=== PATIENT | female | born 1930 | race Two or more races ===

== ENCOUNTER 2018-01-11 12:36 | Inpatient (IN) | payer MEDICARE, OTHER ==
[~2018-01-11] VITALS: Ht 154.9 cm; Wt 76.7 kg
[2018-01-11] MEDS ORDERED: Magnesium 1GM/D5W 100ML PREMIX 200 ML IV ONE ×2 (12:40→12:47)
--- NOTE | 2018-01-11 12:42 | NUR ---
MATT FROM AN URGENT CARE DT RAPID HEART RATE-- PATIENT DENIES CHESTPAIN, REPORTED PALPITAITON, PATIENT IS AWAKE AND ALERT,NOT IN DISTRESS. SKIN IS WARM TO TOUCH AND NON DIAPHORETIC. PATIENT IS AFEBRILE. DENIES CHEST PAIN, NO SOB, VSS. CONNECTED PT TO TELE MONITOR. PENDING MD CROWELL
[2018-01-11] MEDS ORDERED: DILTIAZEM HCL 25 MG IV ONE (12:46)
[2018-01-11 13:00] LABS: BASOPHILS % (AUTO) 0.4 % (0.0-2.0); EOSINOPHILS % (AUTO) 0.5 % (0.0-6.0); HEMATOCRIT 44 % (33-45); HEMOGLOBIN 14.7 g/dL (11.5-14.8); LYMPHOCYTES # (AUTO) 1.5 /CMM (0.8-4.8); LYMPHOCYTES % (AUTO) 17.5 % (20.0-44.0); MEAN CORPUSCULAR HGB CONC 33 g/dl (31.0-36.0); MEAN CORPUSCULAR VOLUME 90 fL (82-100); MONOCYTES # (AUTO) 0.6 /CMM (0.1-1.30); MONOCYTES % (AUTO) 6.8 % (2.0-12.0); NEUTROPHILS # (AUTO) 6.3 /CMM (1.8-8.9); NEUTROPHILS % (AUTO) 74.8 % (43.0-81.0); PLATELET COUNT (AUTO) 251 /CMM (150-450); RDW COEFFICIENT OF VARIATION 12.1 (11.5-15.0); RED BLOOD CELL COUNT(AUTO) 4.91 MIL/uL (4.0-5.2); WHITE BLOOD COUNT (AUTO) 8.4 K/uL (4.3-11.0)
[2018-01-11] MEDS ORDERED: DILTIAZEM HCL 25 MG IV IVP ONE (13:00)
[2018-01-11] MEDS ORDERED: DILTIAZEM HCL IV 125 MG in IV D5W 100 ML IV ONE (13:00)
[2018-01-11] MEDS ORDERED: IV NS 0.9% 500 ML BAG IV ONE (13:00)
[2018-01-11 13:14] LABS: INR 0.91 (0.85-1.15)
[2018-01-11 13:21] LABS: TROPONIN I < 0.017 ng/mL (0.00-0.056)
[2018-01-11 13:23] LABS: B-TYPE NATRIURETIC PEPTIDE 1316 PG/ML (0-125); CALCIUM, SERUM 9.3 mg/dL (8.5-10.1); CARBON DIOXIDE 26 mmol/L (21-32); CHLORIDE 104 mmol/L (98-107); CREATININE 0.8 mg/dL (0.6-1.3); GLUCOSE 98 mg/dL (74-106); POTASSIUM 3.5 mmol/L (3.5-5.1); SODIUM SERUM 141 mmol/L (136-145); UREA NITROGEN, BLOOD 19 mg/dL (7-18)
[2018-01-11 13:25] LABS: APPEARANCE,URINE Clear (CLEAR); BILIRUBIN,URINE Negative (NEGATIVE); BLOOD, URINE Trace-intact Ery/uL (NEGATIVE); COLOR,URINE Yellow (YELLOW); KETONES,URINE Negative (NEGATIVE); LEUKOCYTE ESTERASE ,URINE Negative (NEGATIVE); NITRITE, URINE Negative (NEGATIVE); PH,URINE 6.5 (5.0-8.0); PROTEIN,URINE Negative (NEGATIVE); UGLUCOSE Negative (NEGATIVE); UROBILINOGEN,URINE 0.2 EU/dL (0.2)
[2018-01-11 13:33] LABS: THYROID STIMULATING HORMONE 1.851 uIU/mL (0.358-3.74)
--- NOTE | 2018-01-11 13:47 | NUR ---
PATIENT UPGRADED TO [facility]
[2018-01-11 13:57] LABS: BACTERIA,URINE None seen /HPF (None Seen); SQUAMOUS EPITHELIAL CELL,UR Few /HPF (None Seen); WBC,URINE 0-2 /HPF (0-3)
--- NOTE | 2018-01-11 14:00 | NUR ---
PAGED EPIC FOR PANEL
--- NOTE | 2018-01-11 14:47 | NUR ---
PT TRANSPORTED TO [facility] WITH VSS.
[2018-01-11 14:52] VITALS: BP 121/65
--- NOTE | 2018-01-11 15:00 | NUR ---
[facility] RN NOTE PATIENT RECEIVED FROM ER WITH DX RAPID AFIB UNDER DR KAM . PATIENT IS ORIENTED WITH PERIOD OF FORGETFULNESS.PATIENT WAS PLACED TELE MONITOR AFIB [id number]. PATIENT ON ROOM AIR , R AC HL INTACT AND LT HAND INTACT , BED IN LOWEST AND LOCKED POSITION HOSPITAL HOSPITAL ORIENTATION DONE , VS TAKEN, ON CARDIZEM DRIP FROM ER WILL CONT TO MONITOR CLOSELY , BED IN LOWEST AND LOCKED POSITION ,CALL LIGHT WITHIN REACH
--- NOTE | 2018-01-11 15:44 | NUR ---
[facility] RN NOTE SPOKE WI DR BARNHART NOTIFIED THAT HR AFIB [id number] OK TO STOP CARDIZEM DRIP AND START AMIODARONE BOLUS AND DRIP, ORDER CARRIED OUT
[2018-01-11] MEDS ORDERED: AMIODARONE 900 MG in IV D5W 482 ML IV PRN (16:00)
[2018-01-11] MEDS ORDERED: AMIODARONE 150 MG in IV D5W 100 ML IV ONE (16:00)
[2018-01-11] MEDS ORDERED: ESOM40CA PO (16:05)
[2018-01-11] MEDS ORDERED: SENN-148 PO (16:05)
[2018-01-11] MEDS ORDERED: MYRBETRIQ 25 MG PO (16:05)
[2018-01-11] MEDS ORDERED: MELO-105 PO (16:05)
[2018-01-11] MEDS ORDERED: FLUT1DIS5 IH (16:05)
[2018-01-11] MEDS ORDERED: COLC0.6T67 PO (16:05)
[2018-01-11] MEDS ORDERED: GABA-532 PO (16:05)
[2018-01-11] MEDS ORDERED: DOCU250C89 PO (16:05)
[2018-01-11] MEDS ORDERED: LOSA100T15 PO (16:05)
[2018-01-11] MEDS ORDERED: MAGNESIUM HYDROXIDE 30 ML UDC PO PRN (16:30)
[2018-01-11] MEDS ORDERED: ZOLPIDEM TARTRATE 5 MG TABLET PO PRN (16:30)
[2018-01-11] MEDS ORDERED: ACETAMINOPHEN 325 MG TABLET PO PRN (16:30)
[2018-01-11] MEDS ORDERED: MAG HYDROX/AL HYDROX/SIMETH 30 ML UDC PO PRN (16:30)
[2018-01-11] MEDS ORDERED: HYDROCODONE/APAP 5/325MG 1 EACH TABLET PO PRN (16:30)
[2018-01-11] MEDS ORDERED: ONDANSETRON HCL/PF 4 MG/2 ML VIAL IVP PRN (16:30)
[2018-01-11] MEDS ORDERED: Z GUARD REMEDY 2 OZ OINT TP PRN (16:30)
--- NOTE | 2018-01-11 16:53 | NUR ---
[facility] RN NOTE AMIODARONE DRIP STARTED ORDERER PER PROTOCOL PROTOCOL
[2018-01-11] MEDS: FUROSEMIDE 40 MG/4 ML VIAL IV SCH (16:55)
--- NOTE | 2018-01-11 17:29 | NUR ---
[facility] RN NOTE EKG DONE ORDERED
--- NOTE | 2018-01-11 18:27 | NUR ---
[facility]AND[facility] RN NOTE CONT ON IV AMIODARONE DRIP ORDERED 1MG ,WILL CONT TO MONITOR CLOSELY ALL NEEDS ATTENDED ,KEEP CLEAN DRY
[2018-01-11 20:00] VITALS: BP 119/65
[2018-01-12] VITALS: BP 134/78
[2018-01-12 04:00] VITALS: BP 122/72
--- NOTE | 2018-01-12 07:32 | NUR ---
RN NOTE PATIENT AWAKE IN BED. ALERT AND ORIENTED X 4. SHE IS ABLE TO MAKE THINGS KNOWN IN HER [employer] LANGUAGE. BREATHING EVEN UNLABORED WITH NO SOB OR DISTRESS NOTED. 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 SHE IS CURRENTLY ON AMIODARONE DRIP 0.5MG/HR. IV SITE INTACT AND PATENT. BED LOCKED, LOW POSTION, WILL CONTINUE TO MONITOR CONTINUITY OF CARE
[2018-01-12 07:42] LABS: BASOPHILS % (AUTO) 0.3 % (0.0-2.0); EOSINOPHILS % (AUTO) 1.5 % (0.0-6.0); HEMATOCRIT 37 % (33-45); HEMOGLOBIN 12.8 g/dL (11.5-14.8); LYMPHOCYTES # (AUTO) 1.4 /CMM (0.8-4.8); LYMPHOCYTES % (AUTO) 20.2 % (20.0-44.0); MEAN CORPUSCULAR HGB CONC 34 g/dl (31.0-36.0); MEAN CORPUSCULAR VOLUME 91 fL (82-100); MONOCYTES # (AUTO) 0.7 /CMM (0.1-1.30); MONOCYTES % (AUTO) 10.7 % (2.0-12.0); NEUTROPHILS # (AUTO) 4.6 /CMM (1.8-8.9); NEUTROPHILS % (AUTO) 67.3 % (43.0-81.0); PLATELET COUNT (AUTO) 197 /CMM (150-450); RDW COEFFICIENT OF VARIATION 13.1 (11.5-15.0); RED BLOOD CELL COUNT(AUTO) 4.11 MIL/uL (4.0-5.2); WHITE BLOOD COUNT (AUTO) 6.9 K/uL (4.3-11.0)
[2018-01-12 07:50] LABS: CHOLESTEROL 260 mg/dL (<200); HDL CHOLESTEROL 82 mg/dL (40-60); LDL 153 mg/dL (0-99); TRIGLYCERIDES 84 mg/dL (30-150)
[2018-01-12 07:58] LABS: ALANINE AMINOTRANSFERASE 15 U/L (12-78); ALBUMIN 3.1 g/dL (3.4-5.0); ALKALINE PHOSPHATASE 32 U/L (46-116); ASPARTATE AMINOTRANSFERASE 14 U/L (15-37); BILIRUBIN,TOTAL 0.9 mg/dL (0.2-1.0); CALCIUM, SERUM 8.4 mg/dL (8.5-10.1); CARBON DIOXIDE 27 mmol/L (21-32); CHLORIDE 107 mmol/L (98-107); CREATININE 0.8 mg/dL (0.6-1.3); GLUCOSE 99 mg/dL (74-106); MAGNESIUM 1.9 mg/dL (1.8-2.4); PHOSPHORUS 3.6 mg/dL (2.5-4.9); POTASSIUM 3.5 mmol/L (3.5-5.1); SODIUM SERUM 142 mmol/L (136-145); UREA NITROGEN, BLOOD 15 mg/dL (7-18)
[2018-01-12 08:00] VITALS: BP 131/93
[2018-01-12] MEDS: FUROSEMIDE 40 MG/4 ML VIAL IV SCH (08:23)
--- NOTE | 2018-01-12 09:15 | NUR ---
RN NOTE SEEN BY MD DR NAVARRETE WITH NEW ORDERS FOR CARDIOVERSION ON PATIENT AT 3PM IN THE ICU. NPO EXCEPT MEDS. PATIENT AND FAMILY MADE AWARE. CARRIED OUT AND NOTED.
[2018-01-12] MEDS ORDERED: RIVAROXABAN 10 MG TABLET PO SCH (09:38)
[2018-01-12] MEDS: ATORVASTATIN 10 MG TABLET PO SCH (09:50)
[2018-01-12 12:00] VITALS: BP 133/70
--- NOTE | 2018-01-12 13:40 | NUR ---
RN NOTE PATIENT WENT BACK INTO SINUS RHYTHM. MD DR NAVARRETE NOTIFIED WAITING FOR CALL BACK FOR FURTHER ORDERS.
--- NOTE | 2018-01-12 14:45 | NUR ---
RN NOTE MD DR NAVARRETE CALLED BACK WITH NEW ORDERS FOLLOWED START AMIODARONE 400MG TID PO. GIVE 400MG AMIODARONE NOW PO. PATIENT AND FAMILY MADE AWARE. CARRIED AND OUT NOTED
[2018-01-12] MEDS: AMIODARONE HCL 200 MG TABLET PO SCH ×2 (15:21→22:10)
[2018-01-12 16:00] VITALS: BP 127/70
--- NOTE | 2018-01-12 18:36 | NUR ---
RN NOTE PATIENT REMAINED STABLE. NO ACUTE CHANGES NOTED DURING SHIFT. BREATHING EVEN UNLABORED WITH NO SOB OR DISTRESS NOTED. ON PUBLICITY DIRECTOR NORMAL SINUS RHYTHM HR OF 87. IV SITE INTACT AND PATENT WITH NO S/SX OF INFILTRATION OR REDNESS. BED LOCKED, LOW POSITION, WILL ENDORSE TO NEXT SHIFT TO CONTINUE CONTINUITY OF CARE
[2018-01-12 20:00] VITALS: BP 124/66
[2018-01-13] VITALS: BP 148/75
[2018-01-13 04:00] VITALS: BP 156/75
[2018-01-13] MEDS: AMIODARONE HCL 200 MG TABLET PO SCH ×2 (04:41→12:35)
[2018-01-13 08:00] VITALS: BP 145/74
[2018-01-13] MEDS: ATORVASTATIN 10 MG TABLET PO SCH (08:05)
[2018-01-13] MEDS: FUROSEMIDE 40 MG/4 ML VIAL IV SCH (08:05)
[2018-01-13 10:00] VITALS: BP 136/66
[2018-01-13 12:00] VITALS: BP 136/66
[2018-01-13 12:35] VITALS: BP 136/66
--- NOTE | 2018-01-13 14:54 | NUR ---
LIME TRIMMER NOTE PT DISCHARGED HOME WITH SON. EDUCATED SON ON MEDICATION FOR MOTHER. RETURN HOME MEDICATION TO PATIENT FROM INPATIENT PHARMACY. BELONGING LIST SIGNED. ID AND IV REMOVED. WRITTEN RX GIVEN TO PT. DC INSTRUCTIONS GIVEN TO SON. PT LEFT WITH WALKER. WALKED OUT BY NAILA BRANDON. ALL ORDERS CARRIED OUT.
== END 2018-01-13 14:58 | disposition home or self-care (01) | DRG 280 ==
LOC: ER 12:39 → TELE-TD 14:36 → TELE1 01-13 11:54
PROVIDERS: ADMIT Internal Medicine; ATTEND Internal Medicine
DX: I48.91 Unspecified atrial fibrillation (principal); I50.33 Acute on chronic diastolic (congestive) heart failure; I21.4 Non-ST elevation (NSTEMI) myocardial infarction; D68.59 Other primary thrombophilia; I11.0 Hypertensive heart disease with heart failure; K21.9 Gastro-esophageal reflux disease without esophagitis; E78.5 Hyperlipidemia, unspecified
CPT/HCPCS: 36415; 71045-TC; 80048-TC; 80053-TC; 80061-TC; 81000-TC; 83735-TC; 83880; 84100-TC; 84439-TC; 84443-TC; 84484-TC; 85025-TC; 85730-TC; 87081-TC; 93307-TC; A4606; J0282; J1940; J3475; J3490; J7030; J7060; Z7610